=== PATIENT | male | born 1955 | race Caucasian/White ===

== ENCOUNTER 2016-05-19 08:51 | Outpatient (CLI) | payer OTHER | END 2016-05-19 08:52 | disposition home or self-care (01) | DX: E11.65 Type 2 diabetes mellitus with hyperglycemia (principal); R97.20 Elevated prostate specific antigen [PSA] ==

== ENCOUNTER 2016-06-13 12:53 | Outpatient (CLI) | payer OTHER | END 2016-06-13 12:54 | disposition home or self-care (01) | DX: L91.8 Other hypertrophic disorders of the skin (principal); D48.5 Neoplasm of uncertain behavior of skin; D22.5 Melanocytic nevi of trunk; B35.1 Tinea unguium ==

== ENCOUNTER 2016-07-26 15:55 | Outpatient (CLI) | payer OTHER ==
[2016-07-29 12:06] LABS: TEST RESULT REPORT (())
== END 2016-07-26 15:56 | disposition home or self-care (01) ==
LOC: LAB.R 15:55
PROVIDERS: ATTEND Internal Medicine
DX: R94.5 Abnormal results of liver function studies (principal)
CPT/HCPCS: 80074; 81599; 87341

== ENCOUNTER 2016-08-04 12:31 | Outpatient (CLI) | payer OTHER ==
--- NOTE | 2016-08-04 15:50 | Ultrasound Report ---
RIGHT UPPER QUADRANT ULTRASOUND: 08/04/2016 CLINICAL INDICATION: Abnormal LFTs. TECHNIQUE: Real-time scanning was performed with account representative static images obtained. FINDINGS: The liver measures 17 cm. Hepatic echogenicity is increased, compatible with fatty infilt ration. Small cysts are present, with the largest measuring 1.4 cm. No solid hepatic lesion or intr ahepatic biliary dilatation is present. The common bile duct measures 5 mm. The gallbladder is norm al. The right kidney measures 12.0 cm. No hydronephrosis is present. Cortical cysts are noted. No free fluid is present. IMPRESSION: FATTY INFILTRATION OF THE LIVER. NO EVIDENCE OF CHOLELITHIASIS OR BILIARY OBSTRUCTION. JOB #: [id number] EXT JOB #:[id number]
== END 2016-08-04 12:32 | disposition home or self-care (01) ==
LOC: DI 12:31
PROVIDERS: ATTEND Internal Medicine
DX: K76.0 Fatty (change of) liver, not elsewhere classified (principal)
CPT/HCPCS: 76705

== ENCOUNTER 2016-09-21 09:54 | Outpatient (CLI) | payer OTHER ==
[2016-09-21 19:09] LABS: BILIRUBIN,DIRECT 0.1 mg/dL (0.1-0.5); BILIRUBIN,TOTAL 0.8 mg/dL (0.2-1.0); TOTAL PROTEIN 6.2 g/dL (6.7-8.2)
[2016-09-21 19:36] LABS: HEMOGLOBIN A1C 0.82 g/dL
== END 2016-09-21 09:55 | disposition home or self-care (01) ==
LOC: LAB.F 09:54
PROVIDERS: ATTEND Internal Medicine
DX: E78.2 Mixed hyperlipidemia (principal)
CPT/HCPCS: 36415; 80076; 83036

== ENCOUNTER 2017-04-12 08:51 | Outpatient (CLI) | payer BC ==
[2017-04-12 12:00] LABS: BASOPHILS % (AUTO) 0.3 %; EOSINOPHILS # (AUTO) 0.2 10^3/uL (0.0-0.7); LYMPHOCYTES # (AUTO) 1.4 10^3/uL (1.5-3.5); LYMPHOCYTES % (AUTO) 27.5 %; MEAN CORPUSCULAR HEMOGLOBIN 32.1 pg (27.0-31.0); MEAN CORPUSCULAR HGB CONC 35.3 g/dL (32.0-36.0); MEAN PLATELET VOLUME 9.6 fL (7.4-11.4); MONOCYTES # (AUTO) 0.5 10^3/uL (0.0-1.0); NEUTROPHILS % (AUTO) 59.2 %; PLT - PLATELET COUNT 118 10^3/uL (130-450); RED BLOOD COUNT 4.68 10^6/uL (4.70-6.10); RED CELL DISTRIBUTION WIDTH 13.3 % (12.0-15.0)
[2017-04-12 12:26] LABS: ALBUMIN/GLOBULIN RATIO 1.5 (1.0-2.2); ALKALINE PHOSPHATASE 50 IU/L (42-121); ALT ALANINE AMINOTRANSFERASE 35 IU/L (10-60); AST ASPARTATE AMINOTRANSFERASE 25 IU/L (10-42); BILIRUBIN,TOTAL 1.1 mg/dL (0.2-1.0); BUN - BLOOD UREA NITROGEN 18 mg/dL (6-20); CALCIUM 9.3 mg/dL (8.5-10.3); CARBON DIOXIDE - CO2 27 mmol/L (21-32); CHLORIDE 103 mmol/L (101-111); CHOL/HDL RATIO 3.9 (<5.0); CHOLESTEROL 157 mg/dL; CREATININE 0.8 mg/dL (0.6-1.2); GFR - MDRD 99 (>89); GLUCOSE 143 mg/dL (70-100); HDL CHOLESTEROL 40 mg/dL; LDL CHOLESTEROL,CALCULATED 91 mg/dL; LDL/HDL RATIO 2.3 (<3.6); SODIUM 137 mmol/L (135-145); TOTAL PROTEIN 6.6 g/dL (6.7-8.2); VLDL CHOLESTEROL 26 mg/dL
[2017-04-12 16:23] LABS: HB2 TOTAL 16.3 g/dL; HEMOGLOBIN A1C 0.82 g/dL; HEMOGLOBIN A1C % 6.8 % (4.6-6.2)
== END 2017-04-12 08:52 | disposition home or self-care (01) ==
LOC: LAB.F 08:51
PROVIDERS: ATTEND Internal Medicine
DX: K76.0 Fatty (change of) liver, not elsewhere classified (principal); N40.0 Benign prostatic hyperplasia without lower urinary tract symptoms; R73.9 Hyperglycemia, unspecified; E78.5 Hyperlipidemia, unspecified; Z79.899 Other long term (current) drug therapy
CPT/HCPCS: 36415; 80053; 80061; 83036; 83721; 84153; 85025

== ENCOUNTER 2017-08-10 08:24 | Outpatient (CLI) | payer OTHER ==
[2017-08-10 10:46] LABS: BASOPHILS % (AUTO) 0.5 %; EOSINOPHILS # (AUTO) 0.1 10^3/uL (0.0-0.7); EOSINOPHILS % (AUTO) 2.6 %; HGB - HEMOGLOBIN 15.3 g/dL (14.0-18.0); LYMPHOCYTES # (AUTO) 1.3 10^3/uL (1.5-3.5); MEAN CORPUSCULAR HEMOGLOBIN 32.7 pg (27.0-31.0); MEAN CORPUSCULAR HGB CONC 34.6 g/dL (32.0-36.0); MEAN CORPUSCULAR VOLUME 94.4 fL (80.0-94.0); MEAN PLATELET VOLUME 9.8 fL (7.4-11.4); MONOCYTES # (AUTO) 0.4 10^3/uL (0.0-1.0); MONOCYTES % (AUTO) 9.8 %; NEUTROPHILS # (AUTO) 2.2 10^3/uL (1.5-6.6); NEUTROPHILS % (AUTO) 54.1 %; PLT - PLATELET COUNT 110 10^3/uL (130-450); RED BLOOD COUNT 4.69 10^6/uL (4.70-6.10); RED CELL DISTRIBUTION WIDTH 13.5 % (12.0-15.0); WHITE BLOOD COUNT 4.1 x10^3/uL (4.8-10.8)
[2017-08-10 11:32] LABS: HB2 TOTAL 17.1 g/dL; HEMOGLOBIN A1C 0.77 g/dL; HEMOGLOBIN A1C % 6.3 % (4.6-6.2)
== END 2017-08-10 08:25 | disposition home or self-care (01) ==
LOC: LAB.F 08:24
PROVIDERS: ATTEND Internal Medicine
DX: D69.6 Thrombocytopenia, unspecified (principal); R73.9 Hyperglycemia, unspecified
CPT/HCPCS: 36415; 83036; 85025

== ENCOUNTER 2017-09-28 23:49 | Outpatient (CLI) | payer OTHER | END 2017-09-28 23:50 | disposition home or self-care (01) | LOC: LAB.R 23:49 | PROVIDERS: ATTEND Internal Medicine | DX: N39.0 Urinary tract infection, site not specified (principal) | CPT/HCPCS: 87086; 87181 ==

== ENCOUNTER 2018-01-10 08:23 | Outpatient (CLI) | payer OTHER ==
[2018-01-10 11:13] LABS: HB2 TOTAL 16.4 g/dL; HEMOGLOBIN A1C 0.94 g/dL; HEMOGLOBIN A1C % 7.4 % (4.6-6.2)
== END 2018-01-10 08:24 | disposition home or self-care (01) ==
LOC: LAB.F 08:23
PROVIDERS: ATTEND Internal Medicine
DX: N40.0 Benign prostatic hyperplasia without lower urinary tract symptoms (principal); R73.9 Hyperglycemia, unspecified
CPT/HCPCS: 36415; 83036; 84153

== ENCOUNTER 2018-04-18 08:35 | Outpatient (CLI) | payer OTHER ==
[2018-04-18 10:14] LABS: BASOPHILS % (AUTO) 0.3 %; EOSINOPHILS # (AUTO) 0.1 10^3/uL (0.0-0.7); EOSINOPHILS % (AUTO) 1.7 %; LYMPHOCYTES # (AUTO) 1.3 10^3/uL (1.5-3.5); MEAN CORPUSCULAR HEMOGLOBIN 32.9 pg (27.0-31.0); MEAN CORPUSCULAR HGB CONC 35.5 g/dL (32.0-36.0); MEAN CORPUSCULAR VOLUME 92.8 fL (80.0-94.0); MEAN PLATELET VOLUME 10.4 fL (7.4-11.4); MONOCYTES # (AUTO) 0.5 10^3/uL (0.0-1.0); MONOCYTES % (AUTO) 10.3 %; NEUTROPHILS # (AUTO) 2.7 10^3/uL (1.5-6.6); NEUTROPHILS % (AUTO) 58.7 %; PLT - PLATELET COUNT 117 10^3/uL (130-450); RED BLOOD COUNT 4.57 10^6/uL (4.70-6.10); WHITE BLOOD COUNT 4.6 x10^3/uL (4.8-10.8)
[2018-04-18 10:31] LABS: HB2 TOTAL 16.3 g/dL; HEMOGLOBIN A1C 0.89 g/dL; HEMOGLOBIN A1C % 7.1 % (4.6-6.2)
[2018-04-18 10:33] LABS: ALBUMIN/GLOBULIN RATIO 1.6 (1.0-2.2); ALKALINE PHOSPHATASE 60 IU/L (42-121); ALT ALANINE AMINOTRANSFERASE 43 IU/L (10-60); AST ASPARTATE AMINOTRANSFERASE 29 IU/L (10-42); BUN - BLOOD UREA NITROGEN 15 mg/dL (6-20); CARBON DIOXIDE - CO2 27 mmol/L (21-32); CHLORIDE 102 mmol/L (101-111); CHOLESTEROL 137 mg/dL; CREATININE 0.8 mg/dL (0.6-1.2); GFR - MDRD 98 (>89); GLUCOSE 162 mg/dL (70-100); HDL CHOLESTEROL 34 mg/dL; LDL CHOLESTEROL,CALCULATED 68 mg/dL; SODIUM 139 mmol/L (135-145); TOTAL PROTEIN 6.5 g/dL (6.7-8.2); VLDL CHOLESTEROL 35 mg/dL
== END 2018-04-18 08:36 | disposition home or self-care (01) ==
LOC: LAB.F 08:35
PROVIDERS: ATTEND Internal Medicine
DX: D69.6 Thrombocytopenia, unspecified (principal); N20.0 Calculus of kidney; K76.0 Fatty (change of) liver, not elsewhere classified; N40.0 Benign prostatic hyperplasia without lower urinary tract symptoms; R73.9 Hyperglycemia, unspecified; E78.5 Hyperlipidemia, unspecified
CPT/HCPCS: 36415; 80053; 80061; 83036; 83721; 84443; 85025

== ENCOUNTER 2018-09-13 08:14 | Day surgery (SDC) | payer BC ==
[2018-09-13] MEDS ORDERED: LACTATED RINGERS 1,000 ML IV ONE (08:54)
[2018-09-13] MEDS ORDERED: fentaNYL 250 MCG/5 ML VIAL IVP ONE (09:53)
[2018-09-13] MEDS ORDERED: MIDAZOLAM 2 MG/2 ML VIAL IVP ONE (09:53)
[2018-09-13 11:15] VITALS: BP 106/66
== END 2018-09-13 08:15 | disposition home or self-care (01) ==
LOC: SDS 08:14
PROVIDERS: ATTEND Surgery
PROC: 0DBN8ZZ Excision of Sigmoid Colon, Via Natural or Artificial Opening Endoscopic (ICD-10-PCS; 2018-09-13)
PROC: 0DBP8ZZ Excision of Rectum, Via Natural or Artificial Opening Endoscopic (ICD-10-PCS; principal; 2018-09-13 09:45)
DX: Z12.11 Encounter for screening for malignant neoplasm of colon (principal); D12.5 Benign neoplasm of sigmoid colon; K62.1 Rectal polyp; K64.8 Other hemorrhoids; G47.33 Obstructive sleep apnea (adult) (pediatric); E66.9 Obesity, unspecified; Z68.36 Body mass index [BMI] 36.0-36.9, adult
CPT/HCPCS: 45380; J3010; J7120

== ENCOUNTER 2018-09-17 09:42 | Outpatient (CLI) | payer BC | END 2018-09-17 09:43 | disposition home or self-care (01) | LOC: LAB.S 09:42 | PROVIDERS: ATTEND Urology | DX: D07.5 Carcinoma in situ of prostate (principal) | CPT/HCPCS: 36415; 84153 ==

== ENCOUNTER 2018-10-12 11:14 | Outpatient (CLI) | payer BC ==
[2018-10-12 17:37] LABS: BASOPHILS % (AUTO) 0.4 %; EOSINOPHILS # (AUTO) 0.1 10^3/uL (0.0-0.7); EOSINOPHILS % (AUTO) 1.7 %; HGB - HEMOGLOBIN 14.9 g/dL (14.0-18.0); LYMPHOCYTES # (AUTO) 1.4 10^3/uL (1.5-3.5); LYMPHOCYTES % (AUTO) 31.2 %; MEAN CORPUSCULAR HEMOGLOBIN 31.6 pg (27.0-31.0); MEAN CORPUSCULAR HGB CONC 33.2 g/dL (32.0-36.0); MEAN CORPUSCULAR VOLUME 95.3 fL (80.0-94.0); MEAN PLATELET VOLUME 12.4 fL (7.4-11.4); MONOCYTES # (AUTO) 0.5 10^3/uL (0.0-1.0); MONOCYTES % (AUTO) 10.7 %; NEUTROPHILS # (AUTO) 2.6 10^3/uL (1.5-6.6); NEUTROPHILS % (AUTO) 55.8 %; PLT - PLATELET COUNT 126 10^3/uL (130-450); RED BLOOD COUNT 4.71 10^6/uL (4.70-6.10); RED CELL DISTRIBUTION WIDTH 12.7 % (12.0-15.0); WHITE BLOOD COUNT 4.6 x10^3/uL (4.8-10.8)
[2018-10-12 17:55] LABS: ALBUMIN/GLOBULIN RATIO 1.5 (1.0-2.2); BILIRUBIN,TOTAL 1.5 mg/dL (0.2-1.0); CALCIUM 9.2 mg/dL (8.5-10.3); CREATININE 0.9 mg/dL (0.6-1.2); TOTAL PROTEIN 6.6 g/dL (6.7-8.2)
[2018-10-12 18:27] LABS: HB2 TOTAL 16.1 g/dL; HEMOGLOBIN A1C 0.94 g/dL; HEMOGLOBIN A1C % 7.5 % (4.6-6.2)
== END 2018-10-12 11:15 | disposition home or self-care (01) ==
LOC: LAB.S 11:14
PROVIDERS: ATTEND Family Medicine
DX: G47.33 Obstructive sleep apnea (adult) (pediatric) (principal); R73.9 Hyperglycemia, unspecified
CPT/HCPCS: 36415; 80053; 83036; 85025

== ENCOUNTER 2019-03-01 11:39 | Outpatient (CLI) | payer BC ==
[2019-03-01 18:06] LABS: CALCIUM 9.2 mg/dL (8.5-10.3); CREATININE 1.1 mg/dL (0.6-1.2)
[2019-03-01 18:40] LABS: HB2 TOTAL 14.9 g/dL; HEMOGLOBIN A1C % 8.3 % (4.6-6.2)
== END 2019-03-01 11:40 | disposition home or self-care (01) ==
LOC: LAB.S 11:39
PROVIDERS: ATTEND Family Medicine
DX: E66.9 Obesity, unspecified (principal); Z68.39 Body mass index [BMI] 39.0-39.9, adult; E11.65 Type 2 diabetes mellitus with hyperglycemia
CPT/HCPCS: 36415; 80048; 83036

== ENCOUNTER 2019-11-26 10:02 | Outpatient (CLI) | payer BC ==
--- NOTE | 2019-11-26 10:57 | SLEEP CARE CONSULTATION ---
Information from patient questionnaire entered by Maggie Anguiano. I have reviewed and concur with the information entered by Maggie Anguiano. This document represents the service I personally performed and the decisions made by me, Mary Ruiz MD, [facility]. History of Present Illness Service Date and Time: 11/26/2019 1002 Reason for Visit: New patient Chief Complaint: reports: Snoring, Observed pauses in breathing Date of Onset: several years Usual bedtime: [id number] Time it takes to fall asleep: minutes Snores at night: Yes Observed to quit breathing while asleep: Yes Sleeps alone due to snoring: Yes Number of times waking at night: 1-2 Reasons for waking at night: reports: Gasping for air, Bathroom Toss, Turn, or Twitch while sleeping: No Recalls having dreams: Yes (and no) Usually gets out of bed at: [id number] Feels refreshed in the morning: No Morning headache: Yes Sleepy or fatigued during the day: Yes Ever fallen asleep while driving: No Takes day naps: Yes Dreams during day naps: No Prior sleep studies: No Additional HPI information: I had the pleasure of seeing Mr. Spivey today regarding the possibility of him having a sleep disorder. As you know, he is a 64 year old gentleman who complains of loud snore and witnessed apneas. He never had a sleep study but has been using a CPAP for many years. His daughter is a pool technician and got him refurbished machine. He reports significant improvement on the treatment. He wears a full face mask. He does not know what pressure is set on his Respironics One Series CPAP. The patient tells me that he normally goes to bed around 10 pm - midnight, and it takes him approximately just a few minutes to fall asleep. He can recall waking up on the average of 1 - 2 times during the night. Most of the time he wakes up because of having to use the bathroom. He has awakened occasionally because of his own snoring, choking, and having to gasp for air. There is not a lot of tossing and turning in his sleep. No somniloquy (sleep talking) or somnambulism (sleep walking). Generally he can recall having dreams. In the morning he usually gets up out of the bed around 8 - 10 a.m. not feeling refreshed nor rested. He usually does have a morning headache. During the day he complains of feeling sleepy and fatigued. His score on [place] Sleepiness Scale is 11 out of 24. He has never fallen asleep while driving nor has had any accident due to sleepiness. He usually takes naps during the day. Upon falling asleep during the day he denies having vivid dreams. He has never had sleep paralysis, experienced cataplexy or symptoms of restless leg syndrome. He denies having impaired concentration during the day. 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 Patient is and lives in [place]. Have you smoked in the past 12 months: No Alcohol use: Yes Alcohol amount and frequency: little, 1-2 times/week Caffeine use: Yes Caffeine amount and frequency: 1 cup coffee/day Family History Family history of sleep disordered breathing: Yes Family Hx Sleep Apnea: Father: Sleep apnea - Treated () Allergies and Home Medications Drug allergies reviewed: Yes (NKDA) Home medication list reviewed: Yes (finasteride, rosuvastatin, citalopram, metformin) Review of Systems Weight gain over past 5 years: 15 Cardiovascular: reports: high blood pressure, irregular heart rate or pulse Respiratory: denies: shortness of breath, wheeze, sputum production, chronic cough, other Gastrointestinal: denies: heartburn, difficulty swallowing, nausea, vomitting, diarrhea, abdominal pain, other Urinary: reports: urgency Neurological: denies: headaches, seizure, head trauma, disorientation, speech dysfunction, gait or balance problems, fainting or unconsciousness, other Psychiatric: reports: anxiety Ear/Nose/Throat: reports: wisdom teeth removed Endocrine: denies: thyroid disease, history of goiter, sluggishness, too hot or cold, excessive thirst, increased appetite, increased urination, unexplained weakness, other Musculoskeletal: reports: neck pain, back pain Immunologic: denies: sneezing, rash, itching, allergies to food or environment, other Physical Exam Vital signs obtained and entered by: To minimize the risk of COVID-19 exposure, detailed exam was not performed. Height: 5 ft 8 in Weight: 224 lb Body Mass Index: 34.0 BMI Classification: Obese Impression and Plan IMPRESSION: 1. Obstructive Sleep Apnea-Hypopnea Syndrome, as evident by history of loud and irregular snoring, observed cessation of breath while asleep, nocturnal choking, unrefreshed sleep, and daytime hypersomnolence. The fact the he had positive response to CPAP therapy also suggests the presence of sleep-disordered breathing. Narrow oropharynx and obesity are common predisposing factors for obstructive sleep apnea-hypopnea syndrome. Pathophysiology of sleep-disordered breathing was discussed. I recommend proceeding to polysomnography to confirm the diagnosis and to assess severity. If he has significant sleep disordered breathing, a manual CPAP titration study will also be performed to find the optimal treatment pressure. I informed the patient of what the sleep studies involve and after some discussion, he agreed to proceed. Plan: 1. Schedule an in-laboratory polysomnography or home sleep apnea test (HSAT) 2. Do not use his CPAP one night before the test. 3. Avoid alcohol, sedative and muscle relaxant around bedtime. 4. Attempt to lose weight. 5. Return in 1 to 2 weeks after the study to discuss results and initiate therapy. Visit Type: In Office Time Spent with Patient (minutes): 15 Provider Statement: I spent 100% of the Face to Face Visit with the patient with greater than 50% spent counseling the patient and coordination of care.
== END 2019-11-26 10:03 | disposition home or self-care (01) ==
LOC: SC 10:02
PROVIDERS: ATTEND Internal Medicine Pulmonary Disease
DX: R06.83 Snoring (principal); R06.81 Apnea, not elsewhere classified; G47.10 Hypersomnia, unspecified; G47.8 Other sleep disorders; R53.83 Other fatigue; E66.9 Obesity, unspecified; Z68.34 Body mass index [BMI] 34.0-34.9, adult; E11.9 Type 2 diabetes mellitus without complications; Z79.84 Long term (current) use of oral hypoglycemic drugs
CPT/HCPCS: 99203; 99212

== ENCOUNTER 2020-01-16 10:57 | Outpatient (CLI) | payer BC | END 2020-01-16 10:58 | disposition home or self-care (01) | LOC: SC 10:57 | PROVIDERS: ATTEND Internal Medicine Pulmonary Disease | DX: G47.33 Obstructive sleep apnea (adult) (pediatric) (principal); R09.02 Hypoxemia; E66.3 Overweight; Z68.34 Body mass index [BMI] 34.0-34.9, adult | CPT/HCPCS: 95806 ==

== ENCOUNTER 2020-01-22 10:58 | Outpatient (CLI) | payer BC ==
--- NOTE | 2020-01-22 10:50 | SLEEP CARE CONSULTATION ---
Information from patient questionnaire entered by Gloria Pierre. I have reviewed and concur with the information entered by Gloria Pierre. This document represents the service I personally performed and the decisions made by , Nori Dallas ARNP. History of Present Illness Service Date and Time: 01/22/2020 1040 Initial [place] Sleepiness Scale score: 11 (in 2020) Current [place] Sleepiness Scale score: 9 Additional HPI information: HAI WILKES returns via Telehealth video for follow up and results of the recently performed home sleep study. I explained the pathophysiology behind obstructive sleep apnea. We then spent quite a bit of time discussing different treatment options. For mild obstructive sleep apnea, surgery and oral appliance are alternatives to nasal CPAP therapy but in moderate or severe cases, nasal CPAP is the most effective and reliable treatment. After some discussion, the patient opted to go with the nasal CPAP therapy. Nasal autoCPAP set at 4-15 cmH20 will be ordered with rationale explained. A manual titration study will be ordered if unable to find optimal pressure with office adjustments. I explained how CPAP machine works and what to expect when using the machine. Using CPAP every night in order to get used to it was emphasized. Patient advised to put CPAP mask on before getting into bed so as not to fall asleep without CPAP. To assist acclimation to CPAP use, it could also be used for a short time during day while reading or watching TV. The patient was instructed to call the CPAP supplier to discuss any mechanical problem that may occur. If the mask given is uncomfortable or is difficult to keep on through the night even with adjustment, contact the CPAP supplier as many will replace with another mask style if notified before 30 days. If snoring or perceives is not getting enough air or too much air from the machine, notify this office. Patient was cautioned about risks of drowsy driving until sleepiness symptoms resolve. Sleep Study - Results Type of Sleep Study: Home sleep study Prior sleep studies: No Polysomnography/Home Sleep Study results: Physician Impression: The quality of the study is good. The length of the study is adequate (> 240 minutes). Please also see the tabulated and graphic data. 1. Obstructive Sleep Apnea-Hypopnea (ICD-10 G47.33), severe, with an AHI of 45.4 /hr and griselda SaO2 of 81%. During the study, the patient had 229 apneas (227 obstructive, 1 central, 1 mixed) and 115 hypopneas. The longest episode lasted 56.5 seconds. The respiratory events occurred independently of sleep stage and body position (supine AHI was 33.1 and non-supine, 50.15). 2. Hypoxemia (ICD-10 R09.02), mild, with the lowest oxygen saturation of 81 % and 42.2 minutes with SaO2 under 90%. Baseline oxygen saturation was normal (Average oxygen saturation was 92%). Allergies and Home Medications Drug allergies reviewed: Yes (NKDA) Home medication list reviewed: Yes (no changes) Review of Systems Review of systems same as previous: Yes (no changes) Physical Exam Vital signs obtained and entered by: Telehealth visit to reduce exposure during Covid pandemic Height: 5 ft 8 in Impression and Plan 1. Obstructive Sleep Apnea-Hypopnea Syndrome, severe, with lowest oxygen saturation of 81%. Obviously this is the cause of the patients symptoms of unrefreshed sleep, and excessive daytime sleepiness. Positive pressure therapy could benefit his diabetes and anxiety. As mentioned above, the patient will be started on nasal autoCPAP therapy with pressure set at 4-15 cmH2O. A manual titration study will be completed if unable to find optimal treatment pressure with office adjustments. Compliance guidelines also reviewed. A copy of compliance guidelines will be given for reference at check out. * Nasal auto CPAP therapy, pressure at 4-15 cm H2O. * Attempt to lose weight. * Avoid alcohol consumption near bedtime. * Avoid non-supine sleep until using CPAP since his non-supine AHI is 50.15 and supine AHI 33.1. * The patient is again cautioned about driving until sleepiness completely reso lves. * Return one month after CPAP obtained. I will assess response to therapy and compliance at that time. Counseling Topics: Weight loss health impact Visit Type: Telehealth Video Video Type: Doximity Patient Location: Home Location of Provider: Office Patient agrees and consents to this telehealth visit type: Yes Time Spent with Patient (minutes): 15 Provider Statement: I spent 100% of the Telehealth Video Call with the patient with greater than 50% spent counseling the patient and coordination of care.
== END 2020-01-22 10:59 | disposition home or self-care (01) ==
LOC: SC 10:58
PROVIDERS: ATTEND Nurse Practitioner Family
DX: G47.33 Obstructive sleep apnea (adult) (pediatric) (principal)

== ENCOUNTER 2020-04-15 10:37 | Outpatient (CLI) | payer BC ==
[2020-04-15 15:40] LABS: BASOPHILS % (AUTO) 0.5 %; EOSINOPHILS # (AUTO) 0.1 10^3/uL (0.0-0.7); EOSINOPHILS % (AUTO) 1.7 %; HGB - HEMOGLOBIN 15.6 g/dL (14.0-18.0); LYMPHOCYTES # (AUTO) 1.2 10^3/uL (1.5-3.5); LYMPHOCYTES % (AUTO) 27.6 %; MEAN CORPUSCULAR HEMOGLOBIN 32.7 pg (27.0-31.0); MEAN CORPUSCULAR HGB CONC 34.4 g/dL (32.0-36.0); MEAN CORPUSCULAR VOLUME 95.2 fL (80.0-94.0); MEAN PLATELET VOLUME 12.8 fL (7.4-11.4); MONOCYTES # (AUTO) 0.5 10^3/uL (0.0-1.0); MONOCYTES % (AUTO) 10.7 %; NEUTROPHILS # (AUTO) 2.5 10^3/uL (1.5-6.6); NEUTROPHILS % (AUTO) 59.3 %; PLT - PLATELET COUNT 118 10^3/uL (130-450); RED BLOOD COUNT 4.77 10^6/uL (4.70-6.10); RED CELL DISTRIBUTION WIDTH 12.5 % (12.0-15.0); WHITE BLOOD COUNT 4.2 x10^3/uL (4.8-10.8)
[2020-04-15 16:07] LABS: ALBUMIN 3.9 g/dL (3.2-5.5); ALBUMIN/GLOBULIN RATIO 1.3 (1.0-2.2); ALKALINE PHOSPHATASE 60 IU/L (42-121); ALT ALANINE AMINOTRANSFERASE 75 IU/L (10-60); AST ASPARTATE AMINOTRANSFERASE 58 IU/L (10-42); BILIRUBIN,TOTAL 1.6 mg/dL (0.2-1.0); BUN - BLOOD UREA NITROGEN 21 mg/dL (6-20); CALCIUM 8.9 mg/dL (8.5-10.3); CARBON DIOXIDE - CO2 27 mmol/L (21-32); CHLORIDE 96 mmol/L (101-111); CHOL/HDL RATIO 4.6 (<5.0); CHOLESTEROL 181 mg/dL; CREATININE 0.7 mg/dL (0.6-1.2); GLUCOSE 281 mg/dL (70-100); HDL CHOLESTEROL 39 mg/dL; LDL CHOLESTEROL,CALCULATED 96 mg/dL; LDL/HDL RATIO 2.5 (<3.6); PSA FREE 0.16 ng/mL (0.16-2.81); PSA TOTAL 0.93 ng/mL (0.000-2.000); TOTAL PROTEIN 6.8 g/dL (6.7-8.2); VLDL CHOLESTEROL 46 mg/dL
[2020-04-15 16:13] LABS: CREATININE,URINE 177.3 mg/dL; MICROALBUM/CREATININE RATIO,UR 23.7 ug/mg (<30.0); MICROALBUMIN,URINE 4.2 mg/dL (0-300.0)
[2020-04-15 16:16] LABS: HEMOGLOBIN A1c% 10.1 % (4.27-6.07)
== END 2020-04-15 10:38 | disposition home or self-care (01) ==
LOC: LAB.S 10:37
PROVIDERS: ATTEND Family Medicine
DX: E11.8 Type 2 diabetes mellitus with unspecified complications (principal); K76.0 Fatty (change of) liver, not elsewhere classified; E78.5 Hyperlipidemia, unspecified; N40.0 Benign prostatic hyperplasia without lower urinary tract symptoms; F41.9 Anxiety disorder, unspecified
CPT/HCPCS: 36415; 80053; 80061; 82043; 82570; 83036; 83721; 84153; 84154; 84443; 85025

== ENCOUNTER 2020-07-17 10:04 | Outpatient (CLI) | payer BC ==
[2020-07-17 15:32] LABS: CALCIUM 9.1 mg/dL (8.5-10.3); CREATININE 0.8 mg/dL (0.6-1.2); POTASSIUM 4.5 mmol/L (3.5-5.0)
[2020-07-17 18:54] LABS: ESTIMATED AVERAGE GLUCOSE 169 mg/dL (70-100); HEMOGLOBIN A1c% 7.5 % (4.27-6.07)
== END 2020-07-17 10:05 | disposition home or self-care (01) ==
LOC: LAB.S 10:04
PROVIDERS: ATTEND Family Medicine
DX: E11.8 Type 2 diabetes mellitus with unspecified complications (principal); E66.9 Obesity, unspecified
CPT/HCPCS: 36415; 80048; 83036

== ENCOUNTER 2020-07-30 08:59 | Outpatient (CLI) | payer BC ==
--- NOTE | 2020-07-30 09:21 | SLEEP CARE CONSULTATION ---
Information from patient questionnaire entered by Gloria Pierre. I have reviewed and concur with the information entered by Gloria Pierre. This document represents the service I personally performed and the decisions made by , Nori Dallas ARNP. History of Present Illness Service Date and Time: 07/30/2020 0859 Previous diagnosis: Severe, Obstructive Sleep Apnea-Hypopnea Syndrome AHI: 45.4 (in 2019) Reason for follow up: first compliance Equipment type: CPAP Equipment obtained from: Other ([facility]; getting supplies as needed) Mask style: Full face Backup mask available: Yes (other mask) Last cushion change: 1.5 months Prior sleep studies: Yes Year and Where: 2019 - [facility] Type of Sleep Study: Polysomnography HPI additional information: HAI WILKES was diagnosed to have severe, AHI 45.4, obstructive sleep apnea- hypopnea syndrome and returned today for CPAP therapy first compliance follow- up. CPAP Compliance Data - Data Reviewed with Patient Average duration of nightly device use: 7 hr 55 min Compliance rate %: 80 Current pressure setting (cmH2O): 4-15 (median 8.0, avg 11.3, max 13.0) Humidity settin Average residual AHI: 2.2 Subjective Missed days of use due to: reports: travel (camping and fishing trips) Patient concerns: reports: dry mouth, nose, throat (once in a while). denies: aerophagia, mask discomfort, air blowing in eyes, mask leak noise, condensation in mask/hose, nasal congestion, epistaxis, other Observed to snore while using device: No Current pressure setting perceived as: comfortable On therapy, patient: reports: sleeping better, awakening more refreshed, being more awake and alert during the day, more rested overall. denies: drowsiness while driving Initial [place] Sleepiness Scale score: 11 (in 2020) Current [place] Sleepiness Scale score: 8 Allergies and Home Medications Home medication list reviewed: Yes (Metformin for DM) Review of Systems Review of systems same as previous: Yes (no changes) Physical Exam Heart Rate: 73 O2 Saturation: 97 Height: 5 ft 8 in Weight: 228 lb Body Mass Index: 34.7 BMI Classification: Obese Impression and Plan 1. Obstructive Sleep Apnea-Hypopnea Syndrome, severe, with good treatment compliance and good apnea control. On CPAP therapy, the patient has better sleep quality and is more rested overall. He has significant improvement of his sleep apnea and is satisfied with treatment. He gets some occasional dry mouth but states it has not been often enough to be a problem. I did inform him that oral dryness can be reduced by adjusting humidity setting higher or heated hose lower or by adjusting both settings. Verbal instructions given on how to change humidity and heated hose settings with rationale explaining why to change. He voiced understanding. Patient's apnea severity and rationale for treatment to reduce apnea, improve sleep quality and reduce cardiovascular and cerebrovascular events was reviewed. I also reviewed the benefit of consistent device use of CPAP for depression/anxiety. * Change auto CPAP pressure to 10-13 cmH2O * Notify me if snoring with mask or feeling that the pressure is too much or too little * Attempt to lose weight * Call this office if any problems using CPAP * Return for follow up in 1-2 months, or sooner if concerns arise Counseling Topics: Spare mask, Weight loss health impact Visit Type: In Office Time Spent with Patient (minutes): 21 Provider Statement: I spent 100% of the Face to Face Visit with the patient with greater than 50% spent counseling the patient and coordination of care.
== END 2020-07-30 09:00 | disposition home or self-care (01) ==
LOC: SC 08:59
PROVIDERS: ATTEND Nurse Practitioner Family
DX: G47.33 Obstructive sleep apnea (adult) (pediatric) (principal); E66.9 Obesity, unspecified; Z68.34 Body mass index [BMI] 34.0-34.9, adult
CPT/HCPCS: 99212; 99213

== ENCOUNTER 2020-10-06 08:58 | Outpatient (CLI) | payer BC ==
--- NOTE | 2020-10-06 09:23 | SLEEP CARE CONSULTATION ---
Information from patient questionnaire entered by Gloria Pierre. I have reviewed and concur with the information entered by Gloria Pierre. This document represents the service I personally performed and the decisions made by , Nori Dallas ARNP. History of Present Illness Service Date and Time: 10/06/2020 0858 Previous diagnosis: Severe, Obstructive Sleep Apnea-Hypopnea Syndrome AHI: 45.4 (in 2019) Reason for follow up: other (2 month with pressure change) Equipment type: CPAP Equipment obtained from: Other ([facility]; getting supplies as needed) Mask style: Full face Backup mask available: Yes Last cushion change: 10 days ago Prior sleep studies: Yes Year and Where: 2019 - [facility] Type of Sleep Study: Home sleep study HPI additional information: HAI WILKES was diagnosed to have severe, AHI 45.4, obstructive sleep apnea- hypopnea syndrome and returned today for CPAP therapy 2 month pressure change follow-up. CPAP Compliance Data - Data Reviewed with Patient Average duration of nightly device use: 8 hr 21 min Compliance rate %: 100 (60 days) Current pressure setting (cmH2O): 10-13 Humidity settin Average residual AHI: 1.6 Subjective Missed days of use due to: reports: travel Patient concerns: reports: mask leak noise (just needs repostion or adjust straps). denies: aerophagia, mask discomfort, air blowing in eyes, condensation in mask/hose, nasal congestion, dry mouth, nose, throat, epistaxis, other Observed to snore while using device: No Current pressure setting perceived as: comfortable On therapy, patient: reports: sleeping better, awakening more refreshed, being more awake and alert during the day, more rested overall. denies: drowsiness while driving Initial [place] Sleepiness Scale score: 11 (in 2019) Current [place] Sleepiness Scale score: 5 Allergies and Home Medications Home medication list reviewed: Yes (no changes) Review of Systems Review of systems same as previous: Yes (no changes) Physical Exam Heart Rate: 74 O2 Saturation: 95 Height: 5 ft 8 in Weight: 226 lb Body Mass Index: 34.3 BMI Classification: Obese Impression and Plan 1. Obstructive Sleep Apnea-Hypopnea Syndrome, severe, with excellent treatment compliance and good apnea control. On CPAP therapy, the patient has better sleep quality and is more rested overall. He is trying to lose weight since he went on Metformin, he has lost 12 pounds overall. Obesity increases the risk of apnea, CPAP pressure requirements and overall health risks especially cardiovascular and diabetes. Thus patient is advised to continue to lose weight. Weight loss can be done with reducing portion size, reducing refined foods and balancing content with vegetables, fruit and whole grain foods. Patient is trying to watch what he eats and increase his exercise (walking). Patient's apnea severity and rationale for treatment to reduce apnea, improve sleep quality and reduce cardiovascular and cerebrovascular events was reviewed. I also reviewed the benefit of consistent device use of CPAP for depression/anxiety. * Continue auto CPAP pressure at 10-13 cmH2O * Notify me if snoring with mask or feeling that the pressure is too much or too little * Continue to try to lose weight * Call this office if any problems using CPAP * Return for follow up in 3 months, or sooner if concerns arise Counseling Topics: Spare mask, Weight loss health impact Time Spent with Patient (minutes): 11
== END 2020-10-06 08:59 | disposition home or self-care (01) ==
LOC: SC 08:58
PROVIDERS: ATTEND Nurse Practitioner Family
DX: G47.33 Obstructive sleep apnea (adult) (pediatric) (principal); E66.9 Obesity, unspecified; Z68.34 Body mass index [BMI] 34.0-34.9, adult
CPT/HCPCS: 99212

== ENCOUNTER 2020-12-28 18:39 | Outpatient (CLI) | payer BC | END 2020-12-28 18:40 | disposition home or self-care (01) | LOC: COV 18:39 | PROVIDERS: ATTEND Ophthalmology | DX: Z01.812 Encounter for preprocedural laboratory examination (principal); Z20.822 Contact with and (suspected) exposure to COVID-19 ==

== ENCOUNTER 2021-09-28 09:21 | Outpatient (CLI) | payer MEDICARE, OTHER ==
[2021-09-28 15:01] LABS: CREATININE,URINE 226.9 mg/dL; MICROALBUMIN,URINE 3.4 mg/dL (0-300.0)
[2021-09-28 15:12] LABS: BASOPHILS % (AUTO) 0.5 %; EOSINOPHILS # (AUTO) 0.1 10^3/uL (0.0-0.7); EOSINOPHILS % (AUTO) 1.4 %; HCT - HEMATOCRIT 42.8 % (42.0-52.0); HGB - HEMOGLOBIN 14.5 g/dL (14.0-18.0); LYMPHOCYTES # (AUTO) 1.1 10^3/uL (1.5-3.5); MEAN CORPUSCULAR HEMOGLOBIN 32.3 pg (27.0-31.0); MEAN CORPUSCULAR HGB CONC 33.9 g/dL (32.0-36.0); MEAN CORPUSCULAR VOLUME 95.3 fL (80.0-94.0); MEAN PLATELET VOLUME 12.7 fL (7.4-11.4); MONOCYTES # (AUTO) 0.6 10^3/uL (0.0-1.0); MONOCYTES % (AUTO) 12.8 %; NEUTROPHILS # (AUTO) 2.6 10^3/uL (1.5-6.6); NEUTROPHILS % (AUTO) 60.1 %; PLT - PLATELET COUNT 127 10^3/uL (130-450); RED BLOOD COUNT 4.49 10^6/uL (4.70-6.10); RED CELL DISTRIBUTION WIDTH 13.2 % (12.0-15.0); WHITE BLOOD COUNT 4.4 x10^3/uL (4.8-10.8)
[2021-09-28 15:19] LABS: ALBUMIN 4.3 g/dL (3.2-5.5); ALBUMIN/GLOBULIN RATIO 1.5 (1.0-2.2); ALKALINE PHOSPHATASE 53 IU/L (42-121); ALT ALANINE AMINOTRANSFERASE 48 IU/L (10-60); AST ASPARTATE AMINOTRANSFERASE 36 IU/L (10-42); BILIRUBIN,TOTAL 1.5 mg/dL (0.2-1.0); BUN - BLOOD UREA NITROGEN 19 mg/dL (6-20); CALCIUM 9.8 mg/dL (8.5-10.3); CARBON DIOXIDE - CO2 29 mmol/L (21-32); CHLORIDE 100 mmol/L (101-111); CHOLESTEROL 140 mg/dL; CREATININE 0.9 mg/dL (0.6-1.2); GFR - MDRD 85 (>89); GLUCOSE 210 mg/dL (70-100); HDL CHOLESTEROL 35 mg/dL; LDL CHOLESTEROL,CALCULATED 74 mg/dL; LDL/HDL RATIO 2.1 (<3.6); POTASSIUM 4.2 mmol/L (3.5-5.0); SODIUM 137 mmol/L (135-145); TOTAL PROTEIN 7.1 g/dL (6.7-8.2); TRIGLYCERIDES 154 mg/dL; VLDL CHOLESTEROL 31 mg/dL
[2021-09-28 15:28] LABS: THYROID STIMULATING HORMONE 1.29 uIU/mL (0.34-5.60)
[2021-09-28 20:24] LABS: ESTIMATED AVERAGE GLUCOSE 177 mg/dL (70-100); HEMOGLOBIN A1c% 7.8 % (4.27-6.07)
== END 2021-09-28 09:22 | disposition home or self-care (01) ==
LOC: LAB.S 09:21
PROVIDERS: ATTEND Family Medicine
DX: E11.8 Type 2 diabetes mellitus with unspecified complications (principal); Z12.5 Encounter for screening for malignant neoplasm of prostate; D69.6 Thrombocytopenia, unspecified; F41.9 Anxiety disorder, unspecified; G47.33 Obstructive sleep apnea (adult) (pediatric); E78.5 Hyperlipidemia, unspecified
CPT/HCPCS: 36415; 80053; 80061; 82043; 82570; 83036; 83721; 84443; 85025

== ENCOUNTER 2021-12-15 09:43 | Outpatient (CLI) | payer MEDICARE, OTHER ==
--- NOTE | 2021-12-15 10:05 | SLEEP CARE CONSULTATION ---
Information from patient questionnaire entered by Ashleigh Perrin. I have reviewed and concur with the information entered by Ashleigh Perrin. This document represents the service I personally performed and the decisions made by me, Nori Dallas ARNP. History of Present Illness Service Date and Time: 12/15/2021 0943 Previous diagnosis: Severe, Obstructive Sleep Apnea-Hypopnea Syndrome AHI: 45.4 (in 2019) Reason for follow up: annual (LAST SEEN 09/2020 RESMED) Equipment type: CPAP (RESMED) Equipment obtained from: Other ([facility]; getting supplies as needed) Mask style: Full face Backup mask available: Yes (old mask) Last cushion change: 1 month Prior sleep studies: Yes Year and Where: 2019 - [facility] Type of Sleep Study: Home sleep study HPI additional information: HAI WILKES was diagnosed to have severe, AHI 45.4, obstructive sleep apnea- hypopnea syndrome and returned today for CPAP therapy annual follow-up. Sleep Study - Results Type of Sleep Study: Home sleep study Prior sleep studies: Yes Year and Where: 2019 - [facility] CPAP Compliance Data - Data Reviewed with Patient Average duration of nightly device use: 8 hrs 15 min Compliance rate %: 99 (06/16/21-12/12/21; 179/180 days used) Current pressure setting (cmH2O): 10-13 Average residual AHI: 1.1 Central apnea: 0.1 Obstructive apnea: 0.4 Average large leak: 3.9 L/min Subjective Missed days of use due to: reports: other (power outage) Patient concerns: denies: aerophagia, mask discomfort, air blowing in eyes, mask leak noise, condensation in mask/hose, nasal congestion, dry mouth, nose, throat, epistaxis Observed to snore while using device: No Current pressure setting perceived as: comfortable On therapy, patient: reports: sleeping better, awakening more refreshed, being more awake and alert during the day, more rested overall. denies: drowsiness while driving Initial [place] Sleepiness Scale score: 11 (in 2019) Current [place] Sleepiness Scale score: 6 (11/2021) Allergies and Home Medications Drug allergies reviewed: Yes (NKDA) Home medication list reviewed: Yes (no changes) Review of Systems Review of systems same as previous: Yes (no changes) Physical Exam Vital signs obtained and entered by: ASHLEIGH Curry MA Blood Pressure: 128/76 (Left Arm) Cuff size: regular Heart Rate: 88 O2 Saturation: 96 Height: 5 ft 8 in Weight: 224 lb Weight change since last visit: 2 lb loss Body Mass Index: 34.0 BMI Classification: Obese Impression and Plan 1. Obstructive Sleep Apnea-Hypopnea Syndrome, severe, with good treatment compliance and good apnea control. On CPAP therapy, the patient has better sleep quality and is more rested overall. Patient has significant improvement of their sleep apnea and are satisfied with current CPAP therapy. Patient denies problems with oral dryness, nasal congestion, epistaxis, skin irritation or aerophagia. Patient's apnea severity and rationale for treatment to reduce apnea, improve sleep quality and reduce cardiovascular and cerebrovascular events was reviewed. I also reviewed the benefit of consistent device use of CPAP for depression/anxiety. 2. Obesity, unspecified. Currently patients BMI is 34.0. His goal is being under 200 lbs next year. Obesity increases the risk of apnea, CPAP pressure re quirements and overall health risks especially cardiovascular and diabetes. Thus patient is advised to lose weight. Weight loss can be done with reducing portion size, reducing refined foods and balancing content with vegetables, fruit and whole grain foods. In addition, patient encouraged to get regular exercise. * Continue auto CPAP pressure at 10-13 cmH2O * Update supplies * Notify me if snoring with mask or feeling that the pressure is too much or too little * Attempt to lose weight * Call this office if any problems using CPAP * Return for follow up in 1 year, or sooner if concerns arise Counseling Topics: Spare mask, Weight loss health impact Visit Type: In Office Time Spent with Patient (minutes): 20 Provider Statement: I spent 100% of the Face to Face Visit with the patient with greater than 50% spent counseling the patient and coordination of care.
[2021-12-15 10:06] VITALS: BP 128/76
== END 2021-12-15 09:44 | disposition home or self-care (01) ==
LOC: SC 09:43
PROVIDERS: ATTEND Nurse Practitioner Family
DX: G47.33 Obstructive sleep apnea (adult) (pediatric) (principal); E66.9 Obesity, unspecified; Z68.34 Body mass index [BMI] 34.0-34.9, adult
CPT/HCPCS: 99213; G0463; 99212

== ENCOUNTER 2022-09-27 13:44 | Outpatient (CLI) | payer MEDICARE, OTHER ==
[2022-09-27 14:08] LABS: BASOPHILS % (AUTO) 0.4 %; EOSINOPHILS % (AUTO) 0.6 %; HCT - HEMATOCRIT 42.1 % (42.0-52.0); HGB - HEMOGLOBIN 14.5 g/dL (14.0-18.0); LYMPHOCYTES # (AUTO) 1.2 10^3/uL (1.5-3.5); LYMPHOCYTES % (AUTO) 22.7 %; MEAN CORPUSCULAR HEMOGLOBIN 32.1 pg (27.0-31.0); MEAN CORPUSCULAR HGB CONC 34.4 g/dL (32.0-36.0); MEAN CORPUSCULAR VOLUME 93.1 fL (80.0-94.0); MEAN PLATELET VOLUME 11.9 fL (7.4-11.4); MONOCYTES # (AUTO) 0.5 10^3/uL (0.0-1.0); MONOCYTES % (AUTO) 8.9 %; NEUTROPHILS # (AUTO) 3.5 10^3/uL (1.5-6.6); NEUTROPHILS % (AUTO) 67.2 %; PLT - PLATELET COUNT 133 10^3/uL (130-450); RED BLOOD COUNT 4.52 10^6/uL (4.70-6.10); RED CELL DISTRIBUTION WIDTH 12.4 % (12.0-15.0); WHITE BLOOD COUNT 5.2 x10^3/uL (4.8-10.8)
[2022-09-27 14:20] LABS: ALBUMIN 4.4 g/dL (3.2-5.5); ALBUMIN/GLOBULIN RATIO 1.8 (1.0-2.2); ALKALINE PHOSPHATASE 47 IU/L (42-121); ALT ALANINE AMINOTRANSFERASE 38 IU/L (10-60); AST ASPARTATE AMINOTRANSFERASE 26 IU/L (10-42); BILIRUBIN,TOTAL 1.2 mg/dL (0.2-1.0); BUN - BLOOD UREA NITROGEN 22 mg/dL (6-20); CALCIUM 10.5 mg/dL (8.5-10.3); CARBON DIOXIDE - CO2 30 mmol/L (21-32); CHLORIDE 102 mmol/L (101-111); CHOL/HDL RATIO 3.3 (<5.0); CHOLESTEROL 139 mg/dL; CREATININE 0.8 mg/dL (0.6-1.3); GFR - MDRD 97 (>89); GLUCOSE 179 mg/dL (74-104); HDL CHOLESTEROL 42 mg/dL; LDL CHOLESTEROL,CALCULATED 49 mg/dL; LDL/HDL RATIO 1.2 (<3.6); POTASSIUM 4.3 mmol/L (3.5-4.5); SODIUM 137 mmol/L (135-145); TOTAL PROTEIN 6.9 g/dL (6.4-8.9); TRIGLYCERIDES 238 mg/dL (48-352); VLDL CHOLESTEROL 48 mg/dL
[2022-09-27 14:34] LABS: THYROID STIMULATING HORMONE 1.33 uIU/mL (0.34-5.60)
[2022-09-27 20:53] LABS: ESTIMATED AVERAGE GLUCOSE 194 mg/dL (70-100); HEMOGLOBIN A1c% 8.4 % (4.27-6.07)
== END 2022-09-27 13:45 | disposition home or self-care (01) ==
LOC: LAB 13:44
PROVIDERS: ATTEND Family Medicine
DX: E11.8 Type 2 diabetes mellitus with unspecified complications (principal); M17.0 Bilateral primary osteoarthritis of knee; Z12.5 Encounter for screening for malignant neoplasm of prostate; G47.33 Obstructive sleep apnea (adult) (pediatric); F32.A Depression, unspecified
CPT/HCPCS: 36415; 80053; 80061; 82043; 83036; 84443; 85025; G0103; 83721; 84153

== ENCOUNTER 2022-12-15 10:06 | Outpatient (CLI) | payer MEDICARE, OTHER ==
--- NOTE | 2022-12-15 10:39 | Sleep Patient Instructions ---
Sleep Center Visit Summary - Patient Visit Information Reason for Visit: Annual visit for PAP therapy - Patient Instructions Additional Instructions: You will continue with CPAP therapy with pressure set at 10-13 cmH2O. A supply prescription will be updated with your DME. We encourage you to continue to try to lose weight. Please follow up with the sleep care office in 1 year. - Clinic Information Contact: [facility] [address] [place] [address] [email or web address] T: [phone]
--- NOTE | 2022-12-15 10:45 | SLEEP CARE CONSULTATION ---
Information from patient questionnaire entered by Verna Perrin. I have reviewed and concur with the information entered by Verna Perrin. This document represents the service I personally performed and the decisions made by me, Nori Dallas ARNP. History of Present Illness Service Date and Time: 12/15/2022 1006 Previous diagnosis: Severe, Obstructive Sleep Apnea-Hypopnea Syndrome AHI: 45.4 (in 2019) Reason for follow up: annual (LAST SEEN 11/2021) Equipment type: CPAP (RESMED 10, ashby 07/2020) Equipment obtained from: Other ([facility]; getting supplies as needed) Mask style: Full face Mask brand: Resmed (AirFit [id number]) Backup mask available: Yes Last cushion change: 1-2 weeks [facility] sleep [facility] HPI additional information: HAI WILKES was diagnosed to have severe, AHI 45.4, obstructive sleep apnea- hypopnea syndrome and returned today for CPAP therapy annual follow-up. Sleep Study - Results Type of Sleep Study: Home sleep study Prior sleep studies: Yes Year and Where: 2019 - [facility] Compliance Data - Data Reviewed with Patient Average duration of nightly device use: 8 HRS 16 MINS Compliance rate %: 99 (06/15/22-12/11/22; 180/180 days used) Current pressure setting (cmH2O): 10-13 Average residual AHI: 1.4 Central apnea: 0.1 Obstructive apnea: 0.6 Average large leak: 6.3 L/min Subjective Patient concerns: denies: aerophagia, mask discomfort, air blowing in eyes, mask leak noise, condensation in mask/hose, nasal congestion, dry mouth, nose, throat, epistaxis Observed to snore while using device: No Current pressure setting perceived as: comfortable On therapy, patient: reports: sleeping better, awakening more refreshed, being more awake and alert during the day, more rested overall. denies: drowsiness while driving Initial [place] Sleepiness Scale score: 11 (in 2019) Current [place] Sleepiness Scale score: 5 Allergies and Home Medications Known drug allergies: No Drug allergies reviewed: Yes Home medication list reviewed: Yes (glyburide; metformin 500 mg bid) Allergy and home medication list: Allergies No Known Drug Allergies Allergy (Verified 12/14/22 09:20) Review of Systems Review of systems same as previous: Yes (diabetes for last couple years) Physical Exam Vital signs obtained and entered by: NORI FERNANDEZ Blood Pressure: 134/73 Cuff size: wrist (right) Heart Rate: 75 O2 Saturation: 96 Height: 5 ft 8 in Weight: 231 lb Weight change since last visit: 7 lb gain Body Mass Index: 35.1 BMI Classification: Obese Impression and Plan 1. Obstructive Sleep Apnea-Hypopnea Syndrome, severe, with good treatment compliance and good apnea control. On CPAP therapy, the patient has better sleep quality and is more rested overall. Patient has significant improvement of their sleep apnea and is satisfied with current CPAP therapy. Patient denies problems with oral dryness, nasal congestion, epistaxis, skin irritation or aerophagia. Patient's apnea severity and rationale for treatment to reduce apnea, improve sleep quality and reduce cardiovascular and cerebrovascular events was reviewed. I also reviewed the benefit of consistent device use of CPAP for diabetes, depression/anxiety. 2. Obesity, unspecified. Currently patients BMI is 35.1. Obesity increases the risk of apnea, CPAP pressure requirements and overall health risks especially cardiovascular and diabetes. Thus patient is advised to lose weight. * Continue auto CPAP pressure at 10-13 cmH2O * Update supply prescription * Notify me if snoring with mask or feeling that the pressure is too much or too little * Attempt to lose weight * Call this office if any problems using CPAP * Return for follow up in 1 year, or sooner if concerns arise Counseling Topics: Spare mask, Weight loss health impact Prescriptions: Device supplies Visit Type: In Office Time Spent with Patient (minutes): 25 Provider Statement: I spent 100% of the Face to Face Visit with the patient with greater than 50% spent counseling the patient and coordination of care.
[2022-12-15 10:49] VITALS: BP 134/73; O2SAT 96
== END 2022-12-15 10:07 | disposition home or self-care (01) ==
LOC: SC 10:06
PROVIDERS: ATTEND Nurse Practitioner Family
DX: G47.33 Obstructive sleep apnea (adult) (pediatric) (principal); E66.9 Obesity, unspecified; Z68.35 Body mass index [BMI] 35.0-35.9, adult
CPT/HCPCS: 99213; G0463; 99212

== ENCOUNTER 2023-01-27 11:13 | Outpatient (CLI) | payer MEDICARE, OTHER ==
[2023-01-27 15:54] LABS: CREATININE,URINE 109.4 mg/dL; MICROALBUM/CREATININE RATIO,UR 35.6 ug/mg (<30.0); MICROALBUMIN,URINE 3.9 mg/dL
[2023-01-27 18:06] LABS: ESTIMATED AVERAGE GLUCOSE 200 mg/dL (70-100); HEMOGLOBIN A1c% 8.6 % (4.27-6.07)
== END 2023-01-27 11:14 | disposition home or self-care (01) ==
LOC: LAB.S 11:13
PROVIDERS: ATTEND Family Medicine
DX: E11.65 Type 2 diabetes mellitus with hyperglycemia (principal); E78.5 Hyperlipidemia, unspecified; N40.0 Benign prostatic hyperplasia without lower urinary tract symptoms
CPT/HCPCS: 36415; 82043; 82570; 83036

== ENCOUNTER 2023-10-13 08:00 | Outpatient (CLI) | payer MEDICARE, OTHER | END 2023-10-13 23:59 | disposition home or self-care (01) | LOC: LAB 08:00 | PROVIDERS: ATTEND Urology | DX: N40.0 Benign prostatic hyperplasia without lower urinary tract symptoms (principal) | CPT/HCPCS: 87086 ==

== ENCOUNTER 2023-11-01 17:24 | Outpatient (CLI) | payer MEDICARE, OTHER ==
[2023-11-01 17:48] LABS: BASOPHILS % (AUTO) 0.4 %; EOSINOPHILS # (AUTO) 0.1 10^3/uL (0.0-0.7); EOSINOPHILS % (AUTO) 1.3 %; HCT - HEMATOCRIT 41.9 % (42.0-52.0); HGB - HEMOGLOBIN 14.3 g/dL (14.0-18.0); LYMPHOCYTES # (AUTO) 1.2 10^3/uL (1.5-3.5); LYMPHOCYTES % (AUTO) 26.3 %; MEAN CORPUSCULAR HEMOGLOBIN 31.6 pg (27.0-31.0); MEAN CORPUSCULAR HGB CONC 34.1 g/dL (32.0-36.0); MEAN CORPUSCULAR VOLUME 92.5 fL (80.0-94.0); MEAN PLATELET VOLUME 11.8 fL (7.4-11.4); MONOCYTES # (AUTO) 0.5 10^3/uL (0.0-1.0); MONOCYTES % (AUTO) 10.8 %; NEUTROPHILS # (AUTO) 2.9 10^3/uL (1.5-6.6); NEUTROPHILS % (AUTO) 60.8 %; PLT - PLATELET COUNT 142 10^3/uL (130-450); RED BLOOD COUNT 4.53 10^6/uL (4.70-6.10); RED CELL DISTRIBUTION WIDTH 12.4 % (12.0-15.0); WHITE BLOOD COUNT 4.7 x10^3/uL (4.8-10.8)
[2023-11-01 18:03] LABS: MICROALBUM/CREATININE RATIO,UR 45.8 ug/mg (<30.0); MICROALBUMIN,URINE 5.4 mg/dL
[2023-11-01 18:05] LABS: ALBUMIN 4.2 g/dL (3.2-5.5); ALBUMIN/GLOBULIN RATIO 1.7 (1.0-2.2); ALKALINE PHOSPHATASE 56 IU/L (42-121); ALT ALANINE AMINOTRANSFERASE 51 IU/L (10-60); AST ASPARTATE AMINOTRANSFERASE 27 IU/L (10-42); BILIRUBIN,TOTAL 0.9 mg/dL (0.2-1.0); BUN - BLOOD UREA NITROGEN 21 mg/dL (6-20); CALCIUM 9.8 mg/dL (8.5-10.3); CARBON DIOXIDE - CO2 28 mmol/L (21-32); CHLORIDE 102 mmol/L (101-111); CHOL/HDL RATIO 3.3 (<5.0); CHOLESTEROL 144 mg/dL; CREATININE 0.9 mg/dL (0.6-1.3); GFR - MDRD 84 (>89); GLUCOSE 247 mg/dL (74-104); HDL CHOLESTEROL 44 mg/dL; LDL CHOLESTEROL,CALCULATED 52 mg/dL; LDL/HDL RATIO 1.2 (<3.6); POTASSIUM 4.1 mmol/L (3.5-4.5); SODIUM 137 mmol/L (135-145); TOTAL PROTEIN 6.7 g/dL (6.4-8.9); TRIGLYCERIDES 239 mg/dL; VLDL CHOLESTEROL 48 mg/dL
[2023-11-01 18:13] LABS: THYROID STIMULATING HORMONE 1.07 uIU/mL (0.34-5.60)
[2023-11-01 21:41] LABS: ESTIMATED AVERAGE GLUCOSE 252 mg/dL (70-100); HEMOGLOBIN A1c% 10.4 % (4.27-6.07)
== END 2023-11-01 17:25 | disposition home or self-care (01) ==
LOC: LAB 17:24
PROVIDERS: ATTEND Family Medicine
DX: E11.8 Type 2 diabetes mellitus with unspecified complications (principal); E66.9 Obesity, unspecified; E78.5 Hyperlipidemia, unspecified
CPT/HCPCS: 36415; 80053; 80061; 82043; 82570; 83036; 83721; 84443; 85025

== ENCOUNTER 2023-11-13 17:05 | Outpatient (CLI) | payer MEDICARE, OTHER ==
--- NOTE | 2023-11-13 18:27 | Ultrasound Report ---
PROCEDURE: Testicle INDICATIONS: TESTICULAR PAIN RIGHT TECHNIQUE: Real-time scanning was performed of the scrotum and testicles, with image documentation. Color and p ulse Doppler interrogation was performed of both testicles. COMPARISON: None. FINDINGS: Right: Testicle is normal in size at 2.6 x 2 x 2.4 cm, and homogenous in echotexture. Epididymis is normal in overall size and morphology. Right epididymal cyst measures 1.2 x 0.7 x 0.8 cm in size. Tr joshua hydrocele. No varicoceles. Overlying scrotal skin is normal in thickness. Left: Testicle is normal in size at 2.6 x 1.6 x 2.3 cm, and homogeneous in echotexture. Epididymis is normal in overall size and morphology. Left epididymal cysts measures 7 x 6 x 6 mm and 6 x 7 x 7 m m in size. Trace hydrocele. No varicoceles. Overlying scrotal skin is normal in thickness. Doppler: Color and pulse Doppler demonstrate increased vascularity in bilateral epididymides and in right testes. Normal arterial and venous flow is seen in left testes. IMPRESSION: 1. No evidence of testicular torsion. 2. Increased vascularity in right testes and bilateral epididymides suggestive of right-sided orchiti s and bilateral epididymitis. Bilateral epididymal cysts as above. Trace bilateral hydroceles. No hitesh icoceles. Reviewed by: Dariel Haque MD on 11/13/2023 6:25 PM PDT Approved by: Dariel Haque MD on 11/13/2023 6:25 PM PDT Station ID: [id number]
== END 2023-11-13 17:06 | disposition home or self-care (01) ==
LOC: DI 17:05
PROVIDERS: ATTEND Nurse Practitioner Family
DX: N50.3 Cyst of epididymis (principal); N50.811 Right testicular pain